=== PATIENT | male | born 1945 | race Caucasian/White ===

== ENCOUNTER 2024-03-19 19:03 | Emergency (ER) | payer OTHER, SELFPAY ==
--- NOTE | ~2024-03-19 | US_ITS ---
EXAMINATION: US venous doppler [facility] DATE: 03/19/2024 22:39 INDICATION: swelling b/l, R > L . TECHNIQUE: Grayscale images without and with compression and Doppler images of the bilateral lower ex tremity veins were obtained. COMPARISON: None FINDINGS: The right common femoral vein, profunda (deep) femoral vein, femoral vein, popliteal vein, peroneal v ein, posterior tibial veins, gastrocnemius vein, and greater saphenous vein are patent. The left common femoral vein, profunda (deep) femoral vein, femoral vein, popliteal vein, peroneal v ein, posterior tibial veins, gastrocnemius vein, and greater saphenous vein are patent. IMPRESSION: Patent bilateral lower extremity veins. No evidence of deep venous thrombosis. Reviewed, dictated and finalized at location K. CAL ADVISOR
[2024-03-19 19:12] VITALS: BP 153/101; PULSE 76; RESP 16; TEMP 36.4; O2SAT 100
--- NOTE | 2024-03-19 19:51 | PC.NURSE ---
[facility]bo lab order ok to draw in triage per lacey
--- NOTE | 2024-03-19 21:27 | ED_ITS ---
HPI - Extremity Problem General Chief complaint: Extremity Problem,Nontraumatic Stated complaint: leg wound, incontinence Time Seen by Provider: 03/19/24 21:22 Source: patient and family (daughter, ) Mode of arrival: ambulatory Limitations: no limitations History of Present Illness HPI Narrative: Patient presents with leg wounds (though right worse than left) as well as reported incontinence. He has weeping and inflammed wounds on the right (and very slightly on the left). Right leg has a history of a growth/lesion removed (in [place], [place] May 2022); now erythematous. Patient sees the nurse practioner Jennifer Montejo at [facility] where he and reside. She had said that she thought this it might be cellulitis but daughter states they were told to come to the ED to have tests done; not placed on antibiotics. Not on anticoagulation. No history of Diabetes. No fevers/chills. Daugther is also concerned that her father has become increasingingly incontinent, particuarly over the last month. Does not see a urologist. No urological diagnoses. Not on Flomax. No dysuria, hematuria but he does have urgency. Not able to get to the toilet in time. Related Data Allergies Allergy/AdvReac Type Severity Reaction Status Date / Time No Known Allergies Allergy Verified 03/19/24 19:19 [facility] Surgical History Surgical History History of excision of lesion R leg, May 2022 [facility] Social History Social History Living arrangements: [facility] Additional living arrangements comments: [facility] Exam 2 Narrative: GENERAL: Well-appearing, well-nourished, and in no acute distress. HEAD: Normocephalic, atraumatic. EYES: Non injected, non icteric ENT: Nares clear, no rhinorrhea or epistaxis. NECK: Supple. CHEST: Speaking in full sentences. No respiratory distress. HEART: Regular rate and rhythm. . ABDOMEN: Soft, nondistended. EXTREMITIES: Lower extremity edema. Well healed scar on right leg which has inflammation and is warm and swollen. Bilateral venous stasis. Malodorous weeping drainage fromt he right leg. SKIN: Warm, dry. NEURO: No focal deficits. Alert and oriented. Sensation intact throughout bilateral legs. PSYCH: Normal mood and affect. Course Vital Signs Vital signs: Vital Signs Temperature 97.6 F 03/19/24 19:12 Pulse Rate 76 03/19/24 19:12 Respiratory Rate 16 03/19/24 19:12 Blood Pressure 153/101 H 03/19/24 19:12 Pulse Oximetry 100 03/19/24 19:12 Oxygen Delivery Room Air 03/19/24 19:12 Temperature 97.6 F 03/19/24 19:12 Pulse Rate 85 03/20/24 02:19 Respiratory Rate 13 03/20/24 02:19 Blood Pressure 148/90 H 03/20/24 02:19 Pulse Oximetry 100 03/20/24 02:19 Oxygen Delivery Room Air 03/19/24 19:12 MDM - Extremity (Nontraumatic) MDM Narrative Medical decision making narrative: Patient presents with leg swelling bilaterally as well as weeping wounds, primarily on the right. Daughter also worried because patient has been having urinary incontinence. In the emergency department he is afebrile with vital signs notable had hypertension. He has bilateral edema though R > L and this leg is more erythematous. Elevated proBNP though <1800 which would be the reference range for his age. No DVT on US. Urinalysis does not appear infected. Given degree of erythema and a malodorous drainage as well as the edema, will treat as cellulitis. First dose cephalexin given in the ED with rest of course prescribed. Discharged in stable condition. Differential Diagnosis Differential diagnosis: Likely cellulitis, deep vein thrombosis of lower extremity and other (edema (lymphedema/pitting edema/heart failure); for urinary symptoms, stress incontinence, UTI) Lab Data Attestation: I reviewed the patient's lab results. Lab results narrative: No leukocytosis 03/19/24 22:20 03/19/24 22:20 Labs: Lab Results 03/19/24 03/20/24 Range/Units 22:20 00:49 WBC 9.5 (4.5-10.0) K/mm3 RBC 4.70 (4.6-6.20) M/mm3 Hgb 14.3 (14.0-18.0) g/dL Hct 43.3 (42.0-52.0) % MCV 92.1 (80-100) fl MCH 30.4 (26-34) pg MCHC 33.0 (32-36) g/dl RDW 14.4 (11.5-14.5) % Plt Count 394 H (150-375) k/mm3 MPV 9.0 (7.4-10.4) fl Immature Gran % (Auto) 0.5 (0-0.5) % Neut % (Auto) 60.8 (45.5-73.1) % Lymph % (Auto) 19.3 (18.3-44.2) % [place] % (Auto) 12.7 H (2.6-8.5) % Eos % (Auto) 6.1 H (0-4.4) % Baso % (Auto) 0.6 (0.2-1.2) % Lymph # (Auto) 1.82 (0.9-3.2) K/mm3 [place] # (Auto) 1.2 H (0.1-0.6) K/mm3 Eos # (Auto) 0.6 H (0-0.3) K/mm3 Baso # (Auto) 0.1 (0.0-0.1) K/mm3 Abs Immat Gran (auto) 0.05 H (0.00-0.031) K/mm3 Absolute Neuts (auto) 5.7 (1.3-6.7) K/mm3 Absolute Nucleated RBC 0.000 (0.0-0.012) K/mm3 Nucleated RBC % 0.0 (0.0-0.2) % ESR 16 (0-20) mm/hr PT 15.5 H (11.1-14.7) Seconds INR 1.2 APTT 37.7 H (22.3-36.8) Seconds Sodium 140 (137-145) mmol/L Potassium 3.7 (3.4-5.0) mmol/L Chloride 108 H (98-107) mmol/L Carbon Dioxide 27 (22-30) mmol/L Anion Gap 5 (4-12) mmol/L BUN 16 (9-20) mg/dL Creatinine 1.00 (0.7-1.3) mg/dL Estim Creat Clear Calc 65 ml/min Estimated GFR > 60 (59 - ) Glucose 100 (65-110) mg/dL Lactic Acid 1.2 (0.7-2.0) mmol/L Calcium 9.3 (8.4-10.2) mg/dL Total Bilirubin 1.5 H (0.2-1.3) mg/dL AST 33 (17-59) U/L ALT 21 (6-50) U/L Alkaline Phosphatase 92 (38-126) U/L C-Reactive Protein < 0.5 (<1.0) mg/dL NT-Pro-B Natriuret Pep 1600 H (19.9-100) pg/mL Total Protein 8.0 (6.3-8.2) g/dL Albumin 4.3 (3.5-5.1) g/dL Urine Color Dark yellow (Yellow) Urine Appearance Clear (Clear) Urine pH 5.0 (5.0-9.0) Ur Specific [place] 1.032 (1.001-1.035) Urine Protein Trace (Negative) mg/dL Urine Glucose (UA) Negative (Negative) mg/dL Urine Ketones Negative (Negative) mg/dL Ur Blood (Man) Negative (Negative) Urine Nitrate Negative (Negative) Urine Bilirubin Negative (Negative) Urine Urobilinogen 1.0 (<2.0) mg/dL Add Ur Microanalysis Reviewed Leukocyte Esterase Rfl Negative (Negative) JANETT/UL Urine RBC 0-2 (0-2) /hpf Urine WBC 6-10 H (0-3) /hpf Ur Squamous Epith Cells None seen (Few) /hpf Urine Bacteria None seen /hpf Urine Casts 3-5 Imaging Data Radiologist's impression: Patent bilateral lower extremity veins. No evidence of deep venous thrombosis. Discharge Plan Discharge Clinical Impression: Thrombocytosis, Venous stasis dermatitis of both lower extremities, Cellulitis of leg, right, Pyuria, sterile, Urinary incontinence Leg wound, right Qualifiers: Encounter type: initial encounter Qualified Code(s): S81.801A - Unspecified open wound, right lower leg, initial encounter Patient Disposition: [facility] Senior Care/Asst Living Condition: Stable Instructions: Antibiotic Form, Urinary Incontinence (ED), Cellulitis (ED), Venous Insufficiency (DC), Chronic Wounds (ED) Additional Instructions: You were given the 1st dose of antibiotic in the emergency department for your like wounds/infection. Take the rest of this course. For some of the chronic wounds on your legs due to vein issues, you can Call [facility]: [facility], 2nd Floor [address] [place], [place] [address] No evidence of a blood clot in your legs. No evidence of urinary tract infection. If your primary care provider/facility provider does not feel they can work this up further, contact information has also been provided below for a urologist. For any new or worsening symptoms, return to the emergency department such as fever greater than 100.4?F, pain not responding to medications, continued oozing, spreading redness, etc. Acetaminophen/Tylenol (maximum 4000 mg per day) is safe to take with NSAIDs (ibuprofen/Motrin) for pain relief. Patient Language: Kinyarwanda Prescriptions: New cephalexin 500 mg capsule 500 mg PO .q6 H 5 Days Qty: 19 0RF Rx Instructions: first dose given in ED 03/20/24 early AM (just after midnight) ibuprofen 600 mg tablet 600 mg PO TID PRN (Reason: pain) Qty: 30 0RF acetaminophen 500 mg capsule 1,000 mg PO Q6H PRN (Reason: pain) Qty: 30 0RF Follow-up/Referrals: Asim Watts MD [Physician] - (urology) Pendegcarina,VEENA Matthew [Primary Care Provider] - Stand Alone Forms: Detention Discharge Time of Disposition: 01:57
[2024-03-19 22:31] LABS: Basophils Absolute Auto 0.1 K/mm3 (0.0-0.1); Basophils Percent Auto 0.6 % (0.2-1.2); Eosinophils Absolute Auto 0.6 K/mm3 (0-0.3); Eosinophils Percent Auto 6.1 % (0-4.4); Hematocrit 43.3 % (42.0-52.0); Hemoglobin 14.3 g/dL (14.0-18.0); Immature Granulocyte Absolute 0.05 K/mm3 (0.00-0.031); Immature Granulocyte Percent A 0.5 % (0-0.5); Lymphocytes Absolute Auto 1.82 K/mm3 (0.9-3.2); Lymphocytes Percent Auto 19.3 % (18.3-44.2); Mean Corpuscular Hemoglobin 30.4 pg (26-34); Mean Corpuscular Volume 92.1 fl (80-100); Monocytes Absolute Auto 1.2 K/mm3 (0.1-0.6); Monocytes Percent Auto 12.7 % (2.6-8.5); Neutrophils Absolute Auto 5.7 K/mm3 (1.3-6.7); Neutrophils Percent Auto 60.8 % (45.5-73.1); Platelet Count Result 394 k/mm3 (150-375); Red Cell Distribution Width 14.4 % (11.5-14.5); White Blood Count 9.5 K/mm3 (4.5-10.0)
[2024-03-19] MEDS: HYDROcodone/acetaminophen (*CRX) 5-325 MG TABLET 1 TAB PO (22:39)
[2024-03-19 22:45] LABS: Lactic Acid Reflex 1.2 mmol/L (0.7-2.0)
[2024-03-19 22:49] LABS: NT Pro B Type Natriuretic Pept 1600 pg/mL (19.9-100)
[2024-03-19 23:02] LABS: INR 1.2; Prothrombin Time 15.5 Seconds (11.1-14.7)
[2024-03-19 23:03] LABS: Partial Thromboplastin Time 37.7 Seconds (22.3-36.8)
[2024-03-19 23:21] LABS: Erythrocyte Sedimentation Rate 16 mm/hr (0-20)
[2024-03-19 23:44] LABS: Alanine Aminotransferase 21 U/L (6-50); Albumin Level 4.3 g/dL (3.5-5.1); Alkaline Phosphatase 92 U/L (38-126); Anion Gap 5 mmol/L (4-12); Aspartate Amino Transferase 33 U/L (17-59); Bilirubin,Total 1.5 mg/dL (0.2-1.3); Blood Urea Nitrogen 16 mg/dL (9-20); CRP < 0.5 mg/dL (<1.0); Calcium 9.3 mg/dL (8.4-10.2); Carbon Dioxide 27 mmol/L (22-30); Chloride 108 mmol/L (98-107); Estimated CRCL calculation 65 ml/min; Estimated Glomerular Filt Rate > 60; Glucose 100 mg/dL (65-110); Potassium 3.7 mmol/L (3.4-5.0); Sodium 140 mmol/L (137-145)
[2024-03-20 00:59] VITALS: BP 150/95; PULSE 80; RESP 15; O2SAT 99
[2024-03-20] MEDS: CEPHALEXIN 500 MG CAPSULE PO (01:12)
[2024-03-20 01:33] LABS: Add Urine Microscopic? YES; Appearance Urine Clear (Clear); Bacteria Urine None Seen /hpf; Bilirubin Urine Negative (Negative); Blood Urine Negative (Negative); Color Urine Dark Yellow (Yellow); Glucose Urine UA Negative (Negative); Ketones Urine Negative (Negative); Leukocyte Esterase Ur Negative LEU/UL (Negative); Need Manual Microscopic Reviewed; Nitrate Urine Negative (Negative); Protein Urine Trace mg/dL (Negative); RBC Urine 0-2 /hpf (0-2); Specific Grav Ur 1.032 (1.001-1.035); Squamous Epithelial Cell Urine None Seen /hpf (Few)
[2024-03-20 02:17] VITALS: BP 148/90; PULSE 85; RESP 13; O2SAT 100
[2024-03-20 02:19] VITALS: BP 148/90; PULSE 85; RESP 13; O2SAT 100
== END 2024-03-20 02:22 ==
PROVIDERS: Physician Assistant; Emergency Provider Student in an Organized Health Care Education/Training Program; PCP Nurse Practitioner Family
DX: I87.2 Venous insufficiency (chronic) (peripheral) (principal); L03.115 Cellulitis of right lower limb; L98.8 Other specified disorders of the skin and subcutaneous tissue; D75.839 Thrombocytosis, unspecified; R82.81 Pyuria; R32 Unspecified urinary incontinence; R60.0 Localized edema
CPT/HCPCS: 36415; 80053; 81001; 83605; 83880; 85025; 85610; 85652; 85730; 86140; 87086; 93970; 99284; A9270

== ENCOUNTER 2025-02-05 13:21 | Emergency (ER) | payer MEDICARE, SELFPAY ==
[2025-02-05 13:21] VITALS: BP 134/90; PULSE 78; RESP 18; TEMP 36.5; O2SAT 99
--- NOTE | 2025-02-05 13:37 | ED.GENADULT ---
HPI - General Adult General Chief complaint: Wound/Laceration Stated complaint: bleeding s/p derm. procedure History of Present Illness HPI narrative: 79-year-old male presented to the emergency department for evaluation for a bleeding wound on his scalp. Patient reports he had an outpatient procedure this morning approximately 9:00 a.m. after getting home he had worsening bleeding from the wound. Patient is not on any blood thinners. Patient denies any pain. Related Data Allergies Allergy/AdvReac Type Severity Reaction Status Date / Time No Known Allergies Allergy Verified 03/19/24 19:19 Review of Systems Review of Systems: All systems reviewed & are unremarkable except as noted in HPI and below PMFSH Surgical History Surgical History History of excision of lesion R leg, May 2022 [facility] Social History Social History Living arrangements: assisted living Additional living arrangements comments: [facility] Exam Narrative: APPEARANCE: Well appearing, no pain, no distress, well-nourished. 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 The left most wound has no active bleeding. Patient did have a small amount of bleeding from the right biopsy. EYES: PERRLA/EOMI, conjunctivae clear. NOSE: Normal no drainage EARS:TMS clear with good light reflex. THROAT: Pharynx clear, no exudate. NECK: Supple. No adenopathy, no masses. RESPIRATORY: Airway patent, respirations nonlabored. Clear to auscultation bilaterally, no rales, rhonchi, wheezing. CARDIOVASCULAR: Regular rate and rhythm without murmurs rubs or gallops. ABDOMINAL: Soft, nontender, nondistended, normal bowel sounds MUSCULOSKELETAL: Moves all extremities. Strength/ROM intact, No edema, No calf tenderness. NEURO: Alert. Cranial nerves II through XII intact. Good gait. Good coordination SKIN: Warm, dry. Normal Color Course Vital Signs Vital signs: Vital Signs Temperature 97.7 F 02/05/25 13:21 Pulse Rate 78 02/05/25 13:21 Respiratory Rate 18 02/05/25 13:21 Blood Pressure 134/90 02/05/25 13:21 Pulse Oximetry 99 02/05/25 13:21 Oxygen Delivery Room Air 02/05/25 13:21 Temperature 97.7 F 02/05/25 13:21 Pulse Rate 76 02/05/25 14:48 Respiratory Rate 16 02/05/25 14:48 Blood Pressure 144/80 H 02/05/25 14:48 Pulse Oximetry 95 02/05/25 14:48 Oxygen Delivery Room Air 02/05/25 13:21 Procedures Laceration Laceration 1: Date: 02/05/25 Time: 14:22 Site: scalp Side (If applicable): right Description: other (Figure-eight suture utilized for hemostasis arterial bleeding on a dermatologic biopsy site) Depth: simple, single layer Local Anesthetic: lidocaine 1% and with epi Amount of anesthesia used (mL): 4 Pre-repair: wound explored ====== Skin Level ====== Skin layer closed with: prolene Size (cm): 3-0 Number of sutures: 1 Technique: other (Figure-eight) ====== Subcutaneous Layer ====== ====== Muscle Layer ====== ====== Tendon Layer ====== Medical Decision Making MDM Narrative Medical decision making narrative: 79-year-old male presents emergency department for evaluation for bleeding from a dermatologic biopsy. Patient did have a biopsy done yesterday but had to come back in today for further revision of the biopsy due to abnormal cells found the peripheral of the initial biopsy. Patient was discharged home and had worsening bleeding. Patient did arrived with blood soaked gauze and oozing from the right scalp biopsy. Wound was packed with TXA soaked gauze and a pressure dressing was placed. This did not help with the bleeding so wound was injected peripherally with lidocaine with epi and the bleeding was decreased and we could identify the source of the bleeding a figure-eight stitch was placed next to the biopsy and this also significantly helped decrease the bleeding but did not fully resolved the area was treated with silver nitrate and Surgicel gauze was applied to the wound and this ultimately helped resolve the bleeding. Patient and family are updated on wound care and encouraged close follow-up with dermatology. All questions concerns were addressed. They are also educated on reasons to return to the emergency department. Critical Care Procedure Note Authorized and Performed by: Rahul Cerda Total critical care time: Approximately 36 minutes Due to a high probability of clinically significant, life threatening deterioration, the patient required my highest level of preparedness to intervene emergently and I personally spent this critical care time directly and personally managing the patient. This critical care time included obtaining a history; examining the patient; pulse oximetry; ordering and review of studies; arranging urgent treatment with development of a management plan; evaluation of patient's response to treatment; frequent reassessment; and, discussions with other providers. This critical care time was performed to assess and manage the high probability of imminent, life-threatening deterioration that could result in multi-organ failure. It was exclusive of separately billable procedures and treating other patients and teaching time. Please see MDM section and the rest of the note for further information on patient assessment and treatment. Differential Diagnosis Differential Diagnosis: Postop bleeding, postop hemorrhage, arterial bleed Vital Signs Vital Signs: Vital Signs Temperature 97.7 F 02/05/25 13:21 Pulse Rate 78 02/05/25 13:21 Respiratory Rate 18 02/05/25 13:21 Blood Pressure 134/90 02/05/25 13:21 Pulse Oximetry 99 02/05/25 13:21 Oxygen Delivery Room Air 02/05/25 13:21 Temperature 97.7 F 02/05/25 13:21 Pulse Rate 76 02/05/25 14:48 Respiratory Rate 16 02/05/25 14:48 Blood Pressure 144/80 H 02/05/25 14:48 Pulse Oximetry 95 02/05/25 14:48 Oxygen Delivery Room Air 02/05/25 13:21 Critical Care Time Critical Care Time Critical Care Time: Yes Total Critical Care Time: 35 Discharge Plan Discharge Clinical Impression: Post-op bleeding Patient Disposition: Home Condition: Stable Instructions: Antibiotic Form, Laceration (ED) Additional Instructions: Keep a pressure dressing in place for the next 4 hours. After this time you can remove the [place] wrap but did not remove the gauze from the wound. Avoid showering for 24 hours. After 24 hours follow previous recommendations for wound care. Suture that is placed in the scalp should be removed in 2 to 3 days. Continue to have close follow-up with dermatology. If you have any worsening symptoms please call or return to the emergency department. Patient Language: Fijian Prescriptions: No Action cephalexin 500 mg capsule 500 mg PO .q6 H 5 Days Qty: 19 0RF Rx Instructions: first dose given in ED 03/20/24 early AM (just after midnight) ibuprofen 600 mg tablet 600 mg PO TID PRN (Reason: pain) Qty: 30 0RF acetaminophen 500 mg capsule 1,000 mg PO Q6H PRN (Reason: pain) Qty: 30 0RF Follow-up/Referrals: Pendegraft,Tiff, [employer] [Non-Staff, Unknown]
--- NOTE | 2025-02-05 13:50 | PC.NURSE ---
5 ml TX placed on wound with 2 m soaked gauze applied.
[2025-02-05 14:48] VITALS: BP 144/80; PULSE 76; RESP 16; O2SAT 95
--- OUTSIDE RECORDS SUMMARY | 2025-02-05 17:05 | XMS_ITS | Clinical Summary ---
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 Take 3 tablets (300 mg total) by mouth daily 4 Active amLODIPine (NORVASC) 5 mg tabletIndications:H ypertension, essential Take 1 tablet (5 mg total) by mouth daily 4 Active dabigatran (PRADAXA) 150 mg capsuleIndications: Paroxysmal atrial fibrillation (HCC),Stroke risk Take 1 capsule (150 mg total) by mouth 2 (two) times a day 4 Active losartan (COZAAR) 100 mg tabletIndications:H ypertension, essential Take 1 tablet (100 mg total) by mouth daily 4 Active metoprolol XL (TOPROL-XL) 100 mg 24 hr tabletIndications:P aroxysmal atrial fibrillation (HCC) Take 1 tablet (100 mg total) by mouth daily 4 Active pravastatin (PRAVACHOL) 20 mg tabletIndications:M ixed hyperlipidemia Take 1 tablet (20 mg total) by mouth daily 4 Active traZODone (DESYREL) 50 mg tabletIndications:R ecurrent major depressive disorder, in partial remission Take 1 tablet (50 mg total) by mouth nightly 4 Active sertraline (ZOLOFT) 50 mg tabletIndications:R ecurrent major depressive disorder, in partial remission Take 1 tablet (50 mg total) by mouth daily 1 Active omeprazole (PriLOSEC) 20 mg capsuleIndications: Gastroesophageal reflux disease without esophagitis Take 1 capsule (20 mg total) by mouth daily 5 Active memantine (NAMENDA) 10 mg tabletIndications:M oderate to Severe Alzheimer's Type Dementia Take half tablet po bid for two weeks, then one tablet po bid 5 Active donepeziL (ARICEPT) 10 mg tabletIndications:M oderate late onset Alzheimer's dementia without behavioral disturbance, psychotic disturbance, mood disturbance, or anxiety Take 1 tablet (10 mg total) by mouth nightly 5 Active Active Problems Problem Noted Date Diagnosed Date Vitamin D deficiency 12/19/2024 Assessment & Plan (12/19/2024 12:29 PM CDT): Labs ordered Continue Vit D supplementation Gastroesophageal reflux disease without esophagi tis 12/19/2024 Assessment & Plan (12/19/2024 12:30 PM CDT): Chronic, stable Continue Omeprazole 20 mg daily Toenail fungus 12/19/2024 Assessment & Plan (12/19/2024 12:31 PM CDT): Present on bilateral great toes Labs ordered Referral to podiatry Mixed hyperlipidemia 12/23/2023 Assessment & Plan (12/19/2024 12:26 PM CDT): Chronic, stable Labs ordered Continue Pravastatin 20 mg daily Assessment & Plan (12/23/2023 5:22 PM CDT): Chronic, stable Labs ordered Continue Pravastatin 20 mg daily; will adjust as needed Idiopathic chronic gout of multiple sites withou t tophus 12/23/2023 Assessment & Plan (12/19/2024 12:27 PM CDT): Chronic, stable Labs ordered Denies any recent flares Continue Allopurinol 300 mg kaila Assessment & Plan (12/23/2023 5:40 PM CDT): Chronic, stable Labs ordered Continue Allopurinol 300 mg daily Stroke risk 12/23/2023 Assessment & Plan (12/19/2024 12:30 PM CDT): Follows with cardiology ASCVD 28.6% Continue Pradaxa 150 mg BID and Pravastatin 20 mg daily Assessment & Plan (12/23/2023 5:23 PM CDT): Continue Pradaxa 150 mg BID Recurrent major depressive disorder, in partial remission 12/23/2023 Assessment & Plan (12/19/2024 12:28 PM CDT): Chronic, stable Continue Sertraline 50 mg daily and Trazodone 50 mg nightly Assessment & Plan (12/23/2023 5:41 PM CDT): Chronic, stable, well controlled Continue Sertraline 50 mg daily and Trazodone 50 mg nightly 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, psychotic disturbance, mood disturbance, or anxiety 12/23/2023 Assessment & Plan (12/19/2024 12:29 PM CDT): Chronic, stable Follows with neurology Continue Memantine 10 mg BID and Donepezil 10 mg nightly Assessment & Plan (12/23/2023 5:41 PM CDT): Referral to neurology Will find out what medication he was previously on Essential hypertension 05/19/2016 Assessment & Plan (12/19/2024 12:27 PM CDT): Chronic, stable Labs ordered BP at goal at visit; 128/64 Continue Losartan 100 mg daily and Amlodipine 5 mg daily Assessment & Plan (12/23/2023 5:26 PM CDT): Chronic, stable BP at goal at visit; 132/70 Continue Losartan 100 mg daily, Amlodipine 5 mg daily and Metoprolol 100 mg daily Paroxysmal atrial fibrillation 05/19/2016 Assessment & Plan (12/19/2024 12:29 PM CDT): Chronic, stable Follows with cardiology Continue Metoprolol 100 mg daily and Pradaxa 150 mg BID Assessment & Plan (12/23/2023 5:40 PM CDT): Chronic, generally stable Continue with Metoprolol 100 mg daily and Pradaxa 150 mg BID Referral to cardiology Resolved Problems Problem Noted Date Diagnosed Date Resolved Date Cellulitis of leg, right 12/19/202401/2025 Leg wound, right 12/19/2024 12/19/2024 Mitral valve prolapse 05/19/20162024 Assessment & Plan (12/23/2023 5:25 PM CDT): Referral to cardiology Encounters Date Type Department Care Team Description 12/19/2024 12:30 PM CDT Office Visit [facility] [address] [place] [address] Cindy Frost NP Essential hypertension (Primary Dx); Toenail fungus; Mixed hyperlipidemia; Vitamin D deficiency; Idiopathic chronic gout of multiple sites without tophus; Recurrent major depressive disorder, in partial remission; Moderate late onset Alzheimer's dementia without behavioral disturbance, psychotic disturbance, mood disturbance, or anxiety; Paroxysmal atrial fibrillation (HCC); Gastroesophageal reflux disease without esophagitis; Stroke risk from Last 3 Months Immunizations Immunization Administration Dates Next Due Influenza, Quad, Adjuvantated, Intramuscular 09/2021,01/07/2021 Influenza, Quadrivalent, Hig h Dose, Preservative Free, Intrr 01/14/2023,12/19/2019 Influenza, Trivalent, High D ose, Split, Preservative Free, Intramuscular 05/28/2019,05/09/2017 Influenza, Trivalent, IM (MDV) 02/22/2013 Pneumococcal Conjugate Pcv20 12/23/2023 Pneumococcal Polysaccharide PPV23 02/11/2014, Surgical History Surgery Date Site/Laterality Comments SKIN GRAFT Right Leg CATARACT EXTRACTION, BILATERAL Medical History Medical History Date Comments Hypertension Gout Paroxysmal A-fib (HCC) Hyperlipidemia Depression Leg wound, right 12/19/2024 Cellulitis of leg, right 12/19/2024 Family History Medical History Relation Name Comments No Known Problems Father Alzheimer's disease Mother Relation Name Status Comments Father Mother Social History Tobacco Use Types Packs/Day Years Used Date Smoking Tobacco: Never Smokeless Tobacco: Never Tobacco Cessation:Counseling Given: Not Answered AUDIT-C Answer Date Recorded Q1: How often do you have a drink containing alcohol? Never 12/23/2023 Q2: How many drinks containi ng alcohol do you have on a typical day when you are drinking? Patient does not drink Q3: How often do you have si x or more drinks on one occasion? Never 12/23/2023 PHQ-2 Answer Date Recorded PHQ-2 Total Score (If total score is 3 or more points, staff should administer the PHQ-9) 0 12/19/2024 Sex and Gender Information Value Date Recorded Sex Assigned at Not on file Legal Sex Male 10:56 AM CDT Gender Identity Not on file Sexual Orientation Not on file Obstetrics History Last Filed Vital Signs Vital Sign Reading Time Taken Comments Blood Pressure 128/64 12/19/2024 11:12 AM CDT Pulse 56 12/19/2024 11:12 AM CDT Temperature 36.7 C (98.1 F) 12/19/2024 11:12 AM CDT Respiratory Rate 18 12/19/2024 11:12 AM CDT Oxygen Saturation 99% 12/19/2024 11:12 AM CDT Inhaled Oxygen Concentration - - Weight 99.3 kg (219 lb) 12/19/2024 11:12 AM CDT Height 188 cm (6' 2) 12/19/2024 11:12 AM CDT Body Mass Index 28.12 12/19/2024 11:12 AM CDT Plan of Treatment Health Maintenance Due Date Last Done Comments DTaP/Tdap/Td Vaccine (1 - Tdap) 07/11/1956 Zoster Vaccine (1 of 2) 07/11/1997 Well Visit 65+ 07/11/2012 Covid-19 Vaccine (4 - 2024-2 6 season) 2024 01/07/2021, 06/12/2020, 05/22/2020 Influenza Vaccine (#1) 2024 3, 03/16/2022, 01/07/2021, Additional history exists Depression Screening 12/19/2025 12/19/2024, 12/23/19 24 Fall Risk Assessment 12/19/2025 12/19/2024, 12/23/19 24 Pneumococcal vaccine 65+ Completed 024, 02/11/2014, 02/22/2013 Hepatitis B Screening Completed 01/30/2024 Hepatitis C Screening Completed 01/30/2024 Procedures Procedure Name Priority Date/Time Associated Diagnosis Comments HEPATITIS C ANTIBODY Routine 01/30/2024 3:00 PM CDT Encounter for hepatitis C screening test for low risk patient from Last 3 Months or Most Recently Relevant to Health Maintenance Results * Hepatitis C antibody Blood (01/30/2024 3:00 PM CDT) Hep C Ab Nonreactive Nonreactive Comment: Interpretive Data Nonreactive: Antibodies to HCV not detected. Does NOT exclude the possibility of recent exposure to HCV. Equivocal: Equivocal for HCV antibodies. Supplemental molecular testing will be automatically performed to determine infection status in accordance with current CDC screening recommendations. Reactive: Positive for HCV antibodies. This may represent current or past HCV infection. Supplemental molecular testing will be automatically performed to determine current infection status in accordance with current CDC screening recommendations. Interpretive data was last revised on 2019. Blood 01/30/2024 3:00 PM CDT 01/30/2024 8:43 PM CDT Cindy Frost NP LAB MICROBIOLOGY - GENERAL ORDER ELOY Final Result [facility] [address] [address] [place] [address] from Last 3 Months or Most Recently Relevant to Health Maintenance Insurance [employer] MED[employer]ARE Advance Directives For more information, please contact: [phone] Documents on File Type Date Recorded Patient Inside Sales Consultant Expl anation Power of Deicer Tester 07/17/2024 9:06 AM Care Teams Nut Roaster Helper Relationship Specialty Start Date End Date Cindy Frost NP [address] [place] [id number] PCP - General Family Medicine 12/23/23
--- OUTSIDE RECORDS SUMMARY | 2025-02-05 17:05 | XMS_ITS | Patient Health Record ---
Author Organization [facility] Address [address] [place] [id number] Care Team Providers Care House Steward/Stewardess Name Role Phone MRS. Armida Rojas Primary Care Provider DR. LONDON GARCIA Unavailable [phone] NADINE LAUREN Unavailable [phone] Tiff Lenz Unavailable [phone] Elis Garcia Unavailable [phone] Allergies No Known Allergies Reason For Referral No Information Medications Medication SIG (Take, Route, Frequency, Duration) Notes Start Date End Date Status Pravastatin Sodium 20 MG Tablet 1 tablet Orally Once a day Active Omeprazole 20 MG Capsule Delayed Release 1 capsule 1/2 to 1 hour before morning meal Orally Once a day 11/29/2024 Active Memantine HCl 10 MG Tablet 1 tablet Oral ly twice a day Active Losartan Potassium 100 MG Tablet 1 tablet Orally Once a day Active Ibuprofen 600 MG Tablet 1 tablet with fo od or milk as needed Orally Three times a day Active Donepezil HCl 10 MG Tablet 1 tablet Oral ly Once a day Active Dabigatran Etexilate Mesylate 150 MG Capsule 1 capsule Orally Twice a day Active Vitamin D (Ergocalciferol) 1.25 MG (12117 UT) Capsule 1 capsule Orally weekly; Duration: 30 days 01/30/2025 Active Allopurinol 100 MG Tablet 3 tablet Orall y Once a day Active Omeprazole 20 MG Capsule Delayed Release 1 capsule 1/2 to 1 hour before morning meal Orally twice a day 01/24/2025 Active Metoprolol Succinate ER 50 MG Tablet Extended Release 24 Hour 1 tablet Orally Once a day Active Acetaminophen 500 MG Capsule 2 capsule a s needed Orally every 6 hrs Active Vitamin A & D - Ointment as directed Externally twice daily; Duration: 30 days and as needed 05/01/2024 Active traZODone HCl 50 MG Tablet 1 tablet at b edtime Orally Once a day Active amLODIPine Besylate 10 MG Tablet 1 tablet Orally Once a day Active Sertraline HCl 50 MG Tablet 1 tablet Ora lly Once a day Active Social History Tobacco Use: Social History Observation Description Date Details (start date - stop date) Former Smoker NA - NA Social History Drug/Alcohol: Social Info Question Answer Notes Drugs Have you used drugs other than those for medical reasons in the past 12 months? No AUDIT-C (Standard) Did you have a drink containing alcohol in the past year? Yes How often did you have a drink containing alcohol in the past year? Monthly or less (1 point) How many drinks did you have on a typical day when you were drinking in the past year? 1 or 2 drinks (0 point) How often did you have six or more drinks on one occasion in the past year? Never (0 point) Points 1 Interpretation Negative Tobacco Use: Social Info Question Answer Notes Tobacco Control (Standard) Tobacco use: Former smoker Section Notes: never smoker never smoker never smoker never smoker never smoker ne desiree smoker never smoker never smoker never smoker never smoker never smoker never smoker ne desiree smoker never smoker Problems Problem Type SNOMED Code ICD Code Onset Dates Problem Status W/U Status Risk Notes Problem Information temporarily unavailable Hyperlipidemia, unspecified (E78.5) Active confirmed Problem Information temporarily unavailable Major depressive disorder, recurrent, moderate (F33.1) Active confirmed Problem Information temporarily unavailable Essential (primary) hypertension (I10) Active confirmed Problem Information temporarily unavailable Paroxysmal atrial fibrillation (I48.0) Active confirmed Problem Information temporarily unavailable Gout, unspecified (M10.9) Active confirmed Problem Information temporarily unavailable Essential (primary) hypertension (I10) Active confirmed Problem Information temporarily unavailable Vitamin D deficiency (E55.9) Active confirmed Problem Information temporarily unavailable Chronic atrial fibrillation (I48.20) Active confirmed Problem Information temporarily unavailable Hyperlipidemia (E78.5) Active confirmed Problem Information temporarily unavailable Atrial fibrillation, unspecified type (I48.91) Active confirmed Problem Information temporarily unavailable Major depressive disorder, remission status unspecified, unspecified whether recurrent (F32.9) Active confirmed Problem Information temporarily unavailable Paroxysmal A-fib (I48.0) Active confirmed Problem Information temporarily unavailable Chronic dementia (F03.90) Active confirmed Problem Information temporarily unavailable Stasis dermatitis (I87.2) Active confirmed Problem Information temporarily unavailable Mitral valve prolapse (I34.1) Active confirmed Vital Signs Heart Rate 58 /min 01/24/2025 Temperature 98.3 degrees Fahrenheit 01/24/2025 Respiratory Rate 16 /min 01/24/2025 Oximetry 95 % 01/24/2025 Blood pressure diastolic 90 mm Hg 01/24/2025 Weight-kg 99.34 kg 12/13/2024 Blood pressure systolic 130 mm Hg 01/24/2025 Weight 219 lbs 12/13/2024 Encounters Encounter Location [place] [address] 03/19/2024 Tiff Pendegraft Open wound of left lower extremity, initial encounter S81.802A ; Stasis dermatitis I87.2 ; Essential (primary) hypertension I10 ; Gout, unspecified M10.9 ; Paroxysmal A-fib I48.0 ; Hyperlipidemia E78.5 ; Vitamin D deficiency E55.9 and Major depressive disorder, recurrent, moderate F33.[address] [place] [address] 04/02/2024 Tiff Pendegraft Essential (primary) hypertension I10 ; Gout, unspecified M10.9 ; Paroxysmal A-fib I48.0 ; Hyperlipidemia E78.5 ; Vitamin D deficiency E55.9 ; Major depressive disorder, recurrent, moderate F33.1 and Chronic dementia F03.[address] [place] [address] 07/17/2024 Tiff Pendegraft Essential (primary) hypertension I10 ; Paroxysmal A-fib I48.0 ; Gout, unspecified M10.9 ; Hyperlipidemia E78.5 ; Vitamin D deficiency E55.9 ; Major depressive disorder, recurrent, moderate F33.1 and Chronic dementia F03.90 [facility] [address] [place] [address] 10/30/2024 Elis Garcia Chronic dementia F03.90 ; Essential (primary) hypertension I10 ; Chronic atrial fibrillation I48.20 ; Hyperlipidemia E78.5 and Major depressive disorder, recurrent, moderate F33.[address] [place] [address] 11/29/2024 NADINE LAUREN Eructation R14.2 ; Chronic dementia F03.90 and Essential (primary) hypertension I10 [facility] [place] [address] [place] [address] 12/13/2024 NADINE LAUREN Essential (primary) hypertension I10 ; Chronic dementia F03.90 ; Chronic atrial fibrillation I48.20 ; Hyperlipidemia E78.5 and Major depressive disorder, remission status unspecified, unspecified whether recurrent F32.9 [facility] [place] [address] [place] [address] 01/24/2025 Armida Rojas Eructation R14.2 ; Chronic dementia F03.90 ; Essential (primary) hypertension I10 and Early satiety R68.[address] [facility] [place] [address] [place] [address] 05/01/2024 Tiff Pendegraft [facility] [place] [address] [place] [address] 08/29/2024 Tiff Pendegraft [facility] [place] [address] [place] [address] 10/23/2024 LONDON GARCIA [facility] [place] [address] [place] [address] 10/29/2024 Elis Garcia [facility] [place] [address] [place] [address] 11/28/2024 NADINE [facility] [address] [phone] 01/22/2025 NADINE LAUREN [facility] [place] [address] [place] [address] 01/23/2025 Armida Rojas [facility] [place] [address] [place] [address] 01/30/2025 Armida Rojas Assessments Encounter Date Diagnosis (ICD Code) Assessment Notes Treatment Notes Treatment Clinical Notes Section Notes 03/19/2024 Open wound of left lower extremity, initial encounter (ICD-10 - S81.802A) send to ER today refer to home health upon return cleanse wounds apply bactoban and dry dressing change daily and prn 03/19/2024 Stasis dermatitis (ICD-10 - I87.2) cleanse BLE apply ammonium lactate 12 % to BLE daily and prn 04/02/2024 Essential (primary) hypertension (ICD-10 - I10) chronic/stable Continue amlodipine losartan 04/02/2024 Gout, unspecified (ICD-10 - M10.9) chronic/stable continue allopurinol 07/17/2024 Essential (primary) hypertension (ICD-10 - I10) chronic/stable Continue amlodipine losartan BMP reviewed from 04/20 sodium 141, K 3.8, BUN 23, creat 1.31 07/17/2024 Paroxysmal A-fib (ICD-10 - I48.0) chronic/stable continue pradexa metoprolol CBC reviewed from 04/20 hgb 13.4, hct 10/30/2024 Essential (primary) hypertension (ICD-10 - I10) Blood pressure is stable. Managed well on current medications.Neelam ramos current treatment plan and monitoring. 10/30/2024 Chronic dementia (ICD-10 - F03.90) Alert and oriented x2, able to make needs known. Managed well on current medications.Neelam ramos current treatment plan and monitoring. 11/29/2024 Eructation (ICD-10 - R14.2) Somewhat bothersome to those around patient. He states it is all throughout the day and not specifically with meals. 11/29/2024 Chronic dementia (ICD-10 - F03.90) Alert and oriented x2, able to make needs known. Managed well on current medications.Neelam ramos current treatment plan and monitoring. 12/13/2024 Essential (primary) hypertension (ICD-10 - I10) Blood pressure elevated during visit. Blood pressure slightly elevated on last visit. Appears patient has been trending in the high normal to elevated range. Patient denies any adverse signs or symptoms. Amlodipine increased this visit. Monitor blood pressure and heart rate daily and send log to provider for review in two weeks. 12/13/2024 Chronic dementia (ICD-10 - F03.90) Alert and oriented x2, able to make needs known. Managed well on current medications.Neelam ramos current treatment plan and monitoring. 01/24/2025 Eructation (ICD-10 - R14.2) Pt did not recall this but his family reports it persist. He was on omeprazole 20 mg daily, increased to BID Discussed possible GI consult since he is also reporting he feels full quickly. . 01/24/2025 Chronic dementia (ICD-10 - F03.90) Alert and oriented x2, able to make needs known. Managed well on current medications.Neelam nue current treatment plan and monitoring. 01/24/2025 Essential (primary) hypertension (ICD-10 - I10) Blood pressure is stable. Managed well on current medications.Neelam nue current treatment plan and monitoring. 12/13/2024 Chronic atrial fibrillation (ICD-10 - I48.20) Rate controlled. Well managed on current medication regimen. Continue current treatment plan and monitoring. 11/29/2024 Essential (primary) hypertension (ICD-10 - I10) Blood pressure is stable. Managed well on current medications.Neelam nue current treatment plan and monitoring. 10/30/2024 Chronic atrial fibrillation (ICD-10 - I48.20) Rate is controlled.Manage d well on current medications.Neelam nue current treatment plan and monitoring. 07/17/2024 Gout, unspecified (ICD-10 - M10.9) chronic/stable continue allopurinol 04/02/2024 Paroxysmal A-fib (ICD-10 - I48.0) chronic/stable continue pradexa metoprolol 03/19/2024 Essential (primary) hypertension (ICD-10 - I10) chronic/stable Continue amlodipine losartan 03/19/2024 Gout, unspecified (ICD-10 - M10.9) chronic/stable continue allopurinol 04/02/2024 Hyperlipidemia (ICD-10 - E78.5) chronic/stable continue pravastatin 07/17/2024 Hyperlipidemia (ICD-10 - E78.5) chronic/stable continue pravastatin 10/30/2024 Hyperlipidemia (ICD-10 - E78.5) On 10/22/2023, lipid panel showed HDL was elevated at66. Managed well on current medications. Continue current treatment plan and monitoring. Order given today to draw lipid panel on next lab day. 12/13/2024 Hyperlipidemia (ICD-10 - E78.5) Last lipid panel 09/22/2023 revealing elevated HDL. Stable on current medication regimen. Continue current treatment plan and monitoring. 01/24/2025 Early satiety (ICD-10 - R68.81) 12/13/2024 Major depressive disorder, remission status unspecified, unspecified whether recurrent (ICD-10 - F32.9) Patient denies any adverse signs or symptoms. Well managed on current medication regimen. Continue current treatment plan and monitoring. 10/30/2024 Major depressive disorder, recurrent, moderate (ICD-10 - F33.1) The patient denies any concerns at this time.Managed well on current medications.Neelam rachel current treatment plan and monitoring. 07/17/2024 Vitamin D deficiency (ICD-10 - E55.9) chronic/stable continue vitamin d 1000 vitamin d level rviewed from 04/20 28.79 04/02/2024 Vitamin D deficiency (ICD-10 - E55.9) chronic/stable continue vitamin d 1000 03/19/2024 Paroxysmal A-fib (ICD-10 - I48.0) chronic/stable continue pradexa metoprolol 03/19/2024 Hyperlipidemia (ICD-10 - E78.5) chronic/stable continue pravastatin 04/02/2024 Major depressive disorder, recurrent, moderate (ICD-10 - F33.1) chronic/stable continue zoloft 07/17/2024 Major depressive disorder, recurrent, moderate (ICD-10 - F33.1) chronic/stable continue zoloft 07/17/2024 Chronic dementia (ICD-10 - F03.90) chronic/progressi ve Continue aricept 04/02/2024 Chronic dementia (ICD-10 - F03.90) chronic/progressi ve Continue aricept 03/19/2024 Vitamin D deficiency (ICD-10 - E55.9) chronic/stable continue vitamin d 1000 03/19/2024 Major depressive disorder, recurrent, moderate (ICD-10 - F33.1) chronic/stable continue zoloft 03/19/2024 Other f/u after Er visit obtain CBC BMP TSH FLP VIT D 04/02/2024 Other f/u at next routine visit or sooner if needed obtain vitamin d level BMP CBC 07/17/2024 Other f/u at next routine visit or sooner if needed 10/30/2024 Other Continue current treatment plan.Staff to continue to monitor and report any changes.Patient education provided and questions/concern s addressed.Follow up in three months unless necessary sooner. Draw CBC, CMP, and vitamin D level on next lab day. 11/29/2024 Other Continue monse layton treatment plan.Staff to continue to monitor and report any changes.Patient education provided and questions/concern s addressed.Follow up in three months unless necessary sooner. 12/13/2024 Other Continue current treatment plan.Staff to continue to monitor and report any changes.Patient education provided and questions/concern s addressed.Follow up in three months unless necessary sooner. Physician assessment certification completed. 01/24/2025 Other Continue curren t treatment plan.Staff to continue to monitor and report any changes.Patient education provided and questions/concern s addressed.Follow up in three months unless necessary sooner. Plan Of Treatment Pending Test Test Name Order Date Vitamin D, 25-Hydroxy 03/12/2025 Future Test Test Name Order Date Vitamin D, 25-Hydroxy 11/01/2024 Lipid Panel 11/01/2024 Comp. Metabolic Panel (14) 11/01/2024 CBC 11/01/2024 Insurance Providers Payer Name Payer Address Payer Phone Subscriber Number Group Number Insured Name Patient Relationship to Insured Coverage Start Date Coverage End Date [employer] [address] [place] [phone] [id number] Wesley Bo Self - patient is the insured Medical (General) History Medical History History ICD Code Chronic atrial fibrillation I48.20 Essential (primary) hypertension I10 Mitral valve prolapse I34.1 Surgical History Surgery Date(Month/Year) colonoscopy hand surgery vasectomy skin graft - hand and ear eye surgery - cataract cataract extraction excision - skin cancer off head
== END 2025-02-05 14:51 ==
PROVIDERS: Emergency Provider Emergency Medicine
DX: L76.21 Postprocedural hemorrhage of skin and subcutaneous tissue following a dermatologic procedure (principal); Y84.8 Other medical procedures as the cause of abnormal reaction of the patient, or of later complication, without mention of misadventure at the time of the procedure
CPT/HCPCS: 12001; 99282; J3290